=== PATIENT | female | born 1995 | race Caucasian/White ===

== ENCOUNTER 2016-09-30 23:03 | Emergency (ER) | payer BC ==
[2016-09-30 23:59] LABS: Hematocrit 49 % (35-47); Hemoglobin 16.7 g/dl (12.0-16.0); Mean Corpuscular HGB Conc 34 g/dl (31-36); Mean Corpuscular Hemoglobin 33 pg (27-31); Mean Corpuscular Volume 96 fL (80-97); Mean Platelet Volume 9 um3 (7.4-10.4); Red Blood Count 5.13 10^6/ul (4.0-5.4); Red Cell Distribution Width 13 % (10.5-15); White Blood Count 11.2 10^3/ul (3.5-10.8)
[2016-10-01] MEDS ORDERED: Mouth Piece, Nicotine* 1 EACH CARTRIDGE INH ONE (00:06)
[2016-10-01] MEDS ORDERED: Nicotine Inhaler* 10 MG AMP INH ONE (00:06)
[2016-10-01 00:07] LABS: Urine Bilirubin Negative (Negative); Urine Glucose Negative (Negative); Urine Nitrite Negative (Negative)
--- NOTE | 2016-10-01 00:12 | ED ---
Psychiatric Complaint - HPI Summary HPI Summary: Patient is highly intoxicated and is brought in after making threatening statements to her sister about wanting to hurt herself. The police were called and she was brought to the ED for evaluation. The patient is convinced her family doesn't care about her and thinks she "is a piece of shit". She denies a plan. - History Of Current Complaint Chief Complaint: [facility]entalHealth Time Seen by Provider: 09/30/16 23:15 Hx Obtained From: Patient ?: No Onset/Duration: Gradual Onset, Resolved Timing: Hours Severity Initially: Severe Severity Currently: Mild Character: Depressed, Anxious Aggravating Factor(s): Alcohol Use Alleviating Factor(s): Nothing Associated Signs And Symptoms: Positive: Hostile Has Suicidal: Reports: Thoughts - Allergies/Home Medications Allergies/Adverse Reactions: Allergies Allergy/AdvReac Type Severity Reaction Status Date / Time No Known Allergies Allergy Verified 09/30/16 23:49 PMH/Surg Hx/FS Hx/Imm Hx Previously Healthy: Yes Infectious Disease History: No Infectious Disease History: Denies: Traveled Outside the [place] in Last 30 Days - Family History Known Family History: Positive: None - Social History Alcohol Use: Weekly Substance Use Type: Reports: None Smoking Status (MU): Never Smoked Tobacco Review of Systems Positive: Anxious, Depressed All Other Systems Reviewed And Are Negative: Yes Physical Exam - Summary Physical Exam Summary: Patient is weeping and appears intoxicated during conversation, limiting exam. Triage Information Reviewed: Yes Vital Signs On Initial Exam: Initial Vitals Temp Pulse Resp BP Pulse Ox 99.4 F 135 22 128/67 97 09/30/16 23:09 09/30/16 23:09 09/30/16 23:09 09/30/16 23:09 09/30/16 23:09 Vital Signs Reviewed: Yes Completion Of Physical Exam Limited Due To: Other - intoxication Appearance: Positive: Well-Appearing, No Pain Distress, Well-Nourished Skin: Positive: Warm, Skin Color Reflects Adequate Perfusion, Dry, Soft Head/Face: Positive: Normal Head/Face Inspection Eyes: Positive: EOMI, FANG ENT: Positive: Hearing grossly normal Respiratory/Lung Sounds: Positive: Breath Sounds Present Cardiovascular: Positive: Tachycardia Musculoskeletal: Negative: Edema Left, Edema Right Neurological: Positive: Sensory/Motor Intact, Alert, Oriented to Person Place, Time Psychiatric: Positive: Anxious, Depressed AVPU Assessment: Alert - [place] Coma Scale Coma Scale Total: 15 Diagnostics - Vital Signs Vital Signs Temp Pulse Resp BP Pulse Ox 09/30/16 23:09 99.4 F 135 22 128/67 97 - Laboratory Lab Results: Lab Results 09/30/16 Range/Units 23:43 WBC 11.2 H (3.5-10.8) 10^3/ul RBC 5.13 (4.0-5.4) 10^6/ul Hgb 16.7 H (12.0-16.0) g/dl Hct 49 H (35-47) % MCV 96 (80-97) fL MCH 33 H (27-31) pg MCHC 34 (31-36) g/dl RDW 13 (10.5-15) % Plt Count 230 (150-450) 10^3/ul MPV 9 (7.4-10.4) um3 Neut % (Auto) 67.8 (38-83) % Lymph % (Auto) 27.3 (25-47) % [place] % (Auto) 4.1 (1-9) % Eos % (Auto) 0.3 (0-6) % Baso % (Auto) 0.5 (0-2) % Absolute Neuts (auto) 7.6 (1.5-7.7) 10^3/ul Absolute Lymphs (auto) 3.1 (1.0-4.8) 10^3/ul Absolute Monos (auto) 0.5 (0-0.8) 10^3/ul Absolute Eos (auto) 0 (0-0.6) 10^3/ul Absolute Basos (auto) 0.1 (0-0.2) 10^3/ul Absolute Nucleated RBC 0.01 10^3/ul Nucleated RBC % 0.1 Result Diagrams: 09/30/16 23:43 09/30/16 23:43 Lab Statement: Any lab studies that have been ordered have been reviewed, and results considered in the medical decision making process. Course/Dx - Differential Dx/Clinical Impression Differential Diagnosis/HQI/PQRI: Positive: Acute Psychosis, Alcohol Intoxication , Anxiety, Bipolar Disorder, Depression, Homicidal Ideation, Suicidal Ideation Provider Diagnosis: Alcohol use disorder, substance abuse mood disorder - Physician Notifications Patient Is Medically Stable For: Psych Evaluation Discharge - Discharge Plan Condition: Stable Disposition: HOME Referrals: Non Staff,Doctor [Primary Care Provider] -
[2016-10-01 00:13] LABS: ALT 11 U/L (7-52); AST 16 U/L (13-39); Albumin 4.5 g/dL (3.2-5.2); Alkaline Phosphatase 53 U/L (34-104); Anion Gap 12 mmol/L (2-11); Benzodiazepine Urine Screen None Detected (None Detect); Blood Urea Nitrogen 10 mg/dL (6-24); CO2 Carbon Dioxide 18 mmol/L (22-32); Calcium 9.7 mg/dL (8.6-10.3); Chloride 112 mmol/L (101-111); EGFR African American 120.6 (>60); EGFR Non-African American 93.7 (>60); Globulin 2.9 g/dL (2-4); Glucose 76 mg/dL (70-100); Potassium 3.4 mmol/L (3.5-5.0); Sodium 142 mmol/L (133-145); Total Protein 7.4 g/dL (6.4-8.9)
[2016-10-01 00:24] LABS: Acetaminophen < 15 mcg/mL; Alcohol 283 mg/dL (<10); Salicylate < 2.50 mg/dL (<30)
[2016-10-01 00:35] LABS: TSH (Thyroid Stimulating Horm) 1.04 mcIU/mL (0.34-5.60)
[2016-10-01] MEDS ORDERED: LORazepam TAB(*) 1 MG PO ONE (01:10)
[2016-10-01] MEDS ORDERED: Acetaminophen TAB* 325 MG PO ONE (12:14)
[2016-10-01 14:15] VITALS: BP 105/77
--- NOTE | 2016-10-01 15:06 | ED ---
IAvtar Billy, scribed for Vic Moreno MD on 10/01/16 at 1410 . Progress - Progress Note Progress Note: Patient was signed out by Dr. Carey at shift change pending MHE. She was evaluated by Dr. Manley and will be discharged home. Course/Dx - Diagnoses Provider Diagnoses: Alcohol use disorder, substance abuse mood disorder Discharge - Discharge Plan Condition: Stable Disposition: HOME Referrals: Non Staff,Doctor [Primary Care Provider] - The documentation as recorded by the Avtar dumas Billy accurately reflects the service I personally performed and the decisions made by Josh francis Walter, MD.
== END 2016-10-01 14:17 | disposition home or self-care (01) ==
LOC: ED 23:03
DX: F10.10 Alcohol abuse, uncomplicated (principal); F19.14 Other psychoactive substance abuse with psychoactive substance-induced mood disorder
CPT/HCPCS: 36415; 80053; 80307; 80320; 80329; 81003; 84443; 85025; 99285; A9270-GY; G0480